=== PATIENT | male | born 1975 | race Hispanic/Latino ===

== ENCOUNTER 2018-08-16 11:28 | Emergency (ER) | payer SELFPAY ==
[2018-08-16] MEDS ORDERED: KETOROLAC 30 MG/ML INJ ONE (12:33)
[2018-08-16] MEDS ORDERED: TETANUS & DIPHTHERIA TOX,ADULT 0.5 ML VIAL ONE (12:33)
--- NOTE | 2018-08-16 14:03 | RAD REPORT ---
EXAM DESCRIPTION: RAD - Knee Right 3 View - 08/16/2018 1:41 pm CLINICAL HISTORY: Leg pain, laceration superior to the patella COMPARISON: None. FINDINGS: No fracture, dislocation or periosteal reaction.No joint effusion seen. No joint space shala rowing. Soft tissue edema or bruising changes are present superior to the patella. No plain film find ings to indicate extension into a joint capsule. No air or foreign body in the soft tissues. IMPRESSION: No acute bone or joint finding. Soft tissue injury superior to the patella. No findings to suspect intra-articular extension.
--- NOTE | 2018-08-16 14:10 | ER ---
Nurse's Notes [facility] Name: Dmitri Craft Age: 43 yrs Sex: Male : 1975 Arrival Date: 08/16/2018 Time: 11:30 Bed 30 Private MD: Diagnosis: Right knee pain;Right knee abrasion Presentation: 08/16 11:41 Presenting complaint: Patient states: "I tripped and fell and cut my right knee". Pt aa5 reports laceration to right knee, dressing noted. Pt reports injury occurred Thursday08/14/18. Transition of care: patient was not received from another setting of care. Risk Assessment: Do you want to hurt yourself or someone else? Patient reports no desire to harm self or others. Initial Sepsis Screen: Does the patient meet any 2 criteria? No. Patient's initial sepsis screen is negative. Does the patient have a suspected source of infection? No. Patient's initial sepsis screen is negative. Care prior to arrival: None. 11:41 Method Of Arrival: Ambulatory aa5 11:41 Acuity: MIESHA 4 aa5 Historical: - Allergies: 11:42 No Known Allergies; aa5 - PMHx: 11:42 None; aa5 - PSHx: 11:42 None; aa5 - Immunization history:: Last tetanus immunization: unknown. - Social history:: Smoking status: Patient/guardian denies using tobacco. - Ebola Screening: : No symptoms or risks identified at this time. Screenin:16 Abuse screen: Denies threats or abuse. Denies injuries from another. Nutritional ch screening: No deficits noted. Tuberculosis screening: No symptoms or risk factors identified. Fall Risk Fall in past 12 months (25 points). No secondary diagnosis (0 pts). No IV (0 pts). Ambulatory Aid- None/Bed Rest/Nurse Assist (0 pts). Gait- Normal/Bed Rest/Wheelchair (0 pts) Mental Status- Oriented to own ability (0 pts). Total Pagan Fall Scale indicates Low Risk Score (25-44 pts). Fall prevention measures have been instituted. Side Rails Up X 2 Family Present and informed to notify staff if they need to leave bedside As available Patient and Family Educated on Fall Prevention Program and strategies. Assessment: 13:15 Reassessment: Patient appears in no apparent distress at this time. Patient and/or ch family updated on plan of care and expected duration. Pain level reassessed. Patient is alert, oriented x 3, equal unlabored respirations, skin warm/dry/pink. Pain: Complains of pain in right knee Pain currently is 7 out of 10 on a pain scale. Neuro: No deficits noted. Musculoskeletal: Capillary refill < 3 seconds, in bilateral fingers. toes. Range of motion: intact in all extremities. Injury Description: Laceration sustained to right knee is jagged, 2.6 to 7.5 cm long, not bleeding, was sustained 2 days ago. is bleeding no active bleeding noted. 14:14 Reassessment: Patient appears in no apparent distress at this time. No changes from previously documented assessment. Patient and/or family updated on plan of care and expected duration. Pain level reassessed. Patient is alert, oriented x 3, equal unlabored respirations, skin warm/dry/pink. 14:37 Reassessment: Patient appears in no apparent distress at this time. Patient and/or ch family updated on plan of care and expected duration. Pain level reassessed. Patient is alert, oriented x 3, equal unlabored respirations, skin warm/dry/pink. PT STATES HE WANTS TO SPEAK WITH THE PHYSICIAN ABOUT HIS FOOT. DISCHARGE DELAYED DUE TO PT REQUEST. DR JENNINGS NOTIFIED, AWAITING REASSESSMENT OF PT BY PHYSICIAN. Vital Signs: 11:43 BP 141 / 83; Pulse 83; Resp 16 S; Temp 98.5(TE); Pulse Ox 97% on R/A; Weight 84.82 kg aa5 (R); Height 5 ft. 10 in. (177.80 cm) (R); Pain 5/10; 13:00 BP 118 / 88; Pulse 71; Resp 16; Temp 98.8; Pulse Ox 99% on R/A; Pain 6/10; ch 14:37 BP 121 / 78; Pulse 70; Resp 14; Temp 98.7; Pulse Ox 99% on R/A; Pain 2/10; ch 11:43 Body Mass Index 26.83 (84.82 kg, 177.80 cm) aa5 ED Course: 11:30 Patient arrived in ED. as 11:41 Arm band placed on. aa5 11:42 Triage completed. aa5 11:50 Daniel Jennings MD is Attending Physician. [facility] 12:11 Sarita Holbrook, RN is Primary Nurse. ch 13:16 No apparent distress. Resting quietly. ch 13:16 Patient has correct armband on for positive identification. Bed in low position. Call light in reach. Side rails up X 1. Adult w/ patient. Warm blanket given. 13:16 No provider procedures requiring assistance completed. Patient did not have IV access ch during this emergency room visit. Wound care: to laceration located on right knee was cleaned with Hibiclens, dressed with Neosporin, 4X4s, Kerlix, Patient tolerated well. 13:36 X-ray completed. Portable x-ray completed in exam room. Patient tolerated procedure jb2 well. 13:41 Knee Right 3 View XRAY In Process Unspecified. EDMS Administered Medications: 12:27 Drug: Tetanus-Diphtheria Toxoid Adult 0.5 ml {Strategy Analyst: [employer]. Exp: 07/08/2020. Lot #: [id number]. } Route: IM; Site: right deltoid; 14:43 Follow up: Response: No adverse reaction 12:28 Drug: TORadol 30 mg Route: IM; Site: left deltoid; 14:43 Follow up: Response: No adverse reaction Outcome: 14:10 Discharge ordered by MD. ps1 14:40 Discharged to home ambulatory, with family. ch 14:40 Condition: stable 14:40 Discharge instructions given to patient, family, Instructed on discharge instructions, follow up and referral plans. medication usage, Demonstrated understanding of instructions, follow-up care, medications, Prescriptions given X 3. 14:40 Patient left the ED. Signatures: Dispatcher [employer] EDIN Sarita Holbrook, Ty Palomino RN, ch jb2 Stephanie Keith Audri, RN RN aa5 Daniel Jennings MD MD ps1 Corrections: (The following items were deleted from the chart) 13:16 13:15 Injury Description: Laceration sustained to right knee is jagged, 2.6 to 7.5 cm ch long, not bleeding, was sustained 4-6 hours ago. is bleeding no active bleeding noted. ch 14:40 13:00 Discharged to home ambulatory, with family, [facility] 14:40 13:00 Condition: stable [facility] 14:40 13:00 Discharge instructions given to patient, family, Instructed on discharge instructions, follow up and referral plans. medication usage, Demonstrated understanding of instructions, follow-up care, medications, Prescriptions given X 3, ch
--- NOTE | 2018-08-16 14:10 | EDPHYS ---
Physician Documentation [facility] Name: Dmitri Craft Age: 43 yrs Sex: Male : 1975 Arrival Date: 08/16/2018 Time: 11:30 Bed 30 Private MD: ED Physician Daniel Jennings HPI: 08/16 12:05 This 43 yrs old Male presents to ER via Ambulatory with complaints of ps1 Laceration - Knee. 12:05 patient was running with grandson and fell. He hit his right knee and has a deep ps1 abrasion and maceration of the tissue over the right knee. Mild pain to palpation of the patella. Pain rated as moderate. Ambulatory. No remitting factors. Did not hit head. No LOC. . Historical: - Allergies: 11:42 No Known Allergies; aa5 - PMHx: 11:42 None; aa5 - PSHx: 11:42 None; aa5 - Immunization history:: Last tetanus immunization: unknown. - Social history:: Smoking status: Patient/guardian denies using tobacco. - Ebola Screening: : No symptoms or risks identified at this time. ROS: 12:05 Constitutional: Negative for fever, chills, and weight loss, Eyes: Negative for injury, ps1 pain, redness, and discharge, Cardiovascular: Negative for chest pain, palpitations, and edema, Respiratory: Negative for shortness of breath, cough, wheezing, and pleuritic chest pain, Abdomen/GI: Negative for abdominal pain, nausea, vomiting, diarrhea, and constipation, Back: Negative for injury and pain, Neuro: Negative for headache, weakness, numbness, tingling, and seizure. 12:05 MS/extremity: Positive for injury or acute deformity, abrasion, tenderness, of the right knee. 12:05 Skin: Positive for abrasion(s), of the right knee. Exam: 12:05 Constitutional: This is a well developed, well nourished patient who is awake, alert, ps1 and in no acute distress. Head/Face: Normocephalic, atraumatic. Eyes: Pupils equal round and reactive to light, extra-ocular motions intact. Lids and lashes normal. Conjunctiva and sclera are non-icteric and not injected. Chest/axilla: Normal chest wall appearance and motion. Nontender with no deformity. No lesions are appreciated. Cardiovascular: Regular rate and rhythm. No gallops, murmurs, or rubs. Normal PMI, no JVD. No pulse deficits. Respiratory: Lungs have equal breath sounds bilaterally, clear to auscultation and percussion. No rales, rhonchi or wheezes noted. No increased work of breathing, no retractions or nasal flaring. Abdomen/GI: Soft, non-tender, with normal bowel sounds. No distension or tympany. No guarding or rebound. No evidence of tenderness throughout. Skin: Warm, dry with normal turgor. Normal color with no rashes, no lesions, and no evidence of cellulitis. Neuro: Awake and alert, GCS 15, oriented to person, place, time, and situation. Cranial nerves II-XII grossly intact. Sensory grossly intact. Psych: Awake, alert, with orientation to person, place and time. Behavior, mood, and affect are within normal limits. 12:05 Musculoskeletal/extremity: Extremities: grossly normal except: noted in the right knee: laceration, mild patellar pain. Abrasion and macerated skin over the patella appx 4 cm in circumference. Does not appear to be able to be sutured. . Vital Signs: 11:43 BP 141 / 83; Pulse 83; Resp 16 S; Temp 98.5(TE); Pulse Ox 97% on R/A; Weight 84.82 kg aa5 (R); Height 5 ft. 10 in. (177.80 cm) (R); Pain 5/10; 13:00 BP 118 / 88; Pulse 71; Resp 16; Temp 98.8; Pulse Ox 99% on R/A; Pain 6/10; ch 14:37 BP 121 / 78; Pulse 70; Resp 14; Temp 98.7; Pulse Ox 99% on R/A; Pain 2/10; ch 11:43 Body Mass Index 26.83 (84.82 kg, 177.80 cm) aa5 MDM: 12:09 Patient medically screened. ps1 08/16 12:04 Order name: Knee Right 3 View XRAY; Complete Time: 14:06 ps1 Administered Medications: 12:27 Drug: Tetanus-Diphtheria Toxoid Adult 0.5 ml {Clay Miller: [employer]. Exp: 07/08/2020. Lot #: [id number]. } Route: IM; Site: right deltoid; 14:43 Follow up: Response: No adverse reaction 12:28 Drug: TORadol 30 mg Route: IM; Site: left deltoid; 14:43 Follow up: Response: No adverse reaction Disposition: 08/16/18 14:10 Discharged to Home. Impression: Right knee pain, Right knee abrasion. - Condition is Stable. - Discharge Instructions: Abrasion. - Prescriptions for Anaprox DS 550 mg Oral Tablet - take 1 tablet by ORAL route every 12 hours As needed; 20 tablet. Robaxin 500 mg Oral Tablet - take 2 tablet by ORAL route every 6 hours As needed; 40 tablet. Medrol (Maximilian) 4 mg Oral Tablets, Dose Pack - take 1 tablet by ORAL route as directed - follow package instructions; 1 packet. - Medication Reconciliation Form, Thank You Letter, Antibiotic Education, Prescription Opioid Use form. - Work release form (08/16/18 14:41). ch - Follow up: Private Physician; When: 1 week; Reason: Re-evaluation by your physician. - Problem is new. - Symptoms have improved. Signatures: Dispatcher [employer] EDSarita Peter, RN RN Liliya Wu RN RN aa5 Daniel Jennings MD MD ps1 Corrections: (The following items were deleted from the chart) 14:40 14:10 08/16/2018 14:10 Discharged to Home. Impression: Right knee pain; Right knee ch abrasion. Condition is Stable. Forms are Medication Reconciliation Form, Thank You Letter, Antibiotic Education, Prescription Opioid Use. Follow up: Private Physician; When: 1 week; Reason: Re-evaluation by your physician. Problem is new. Symptoms have improved. ps1
== END 2018-08-16 14:40 | disposition home or self-care (01) ==
LOC: ER 11:28
DX: M25.561 Pain in right knee (principal); S80.211A Abrasion, right knee, initial encounter; W01.0XXA Fall on same level from slipping, tripping and stumbling without subsequent striking against object, initial encounter; Y93.9 Activity, unspecified; Y92.9 Unspecified place or not applicable
CPT/HCPCS: 90714; 96372; 99284

== ENCOUNTER 2019-03-10 00:15 | Inpatient (IN) | payer SELFPAY ==
[2019-03-10] MEDS ORDERED: Ringers Lactate 1,000 ML IV ONE (01:09)
[2019-03-10 01:16] VITALS: BMI 26.7
[2019-03-10] MEDS: Ringers Lactate 1,000 ML IV SCH ×3 (01:40→19:00)
[2019-03-10] MEDS ORDERED: ONDANSETRON 4 MG/2 ML VIAL IV PRN (02:17)
[2019-03-10] MEDS: HYDROMORPHONE HCL 1 MG/ML INJ IV PRN ×3 (03:11→20:37)
[2019-03-10 04:31] LABS: ALT/SGPT 54 U/L (12-78); AST/SGOT 19 U/L (15-37); Albumin 3.5 g/dL (3.4-5.0); Alkaline Phosphatase 60 U/L (45-117); BUN Blood Urea Nitrogen 9 mg/dL (7-18); Bicarbonate 27 mmol/L (21-32); Bilirubin Direct 0.4 mg/dL (0-0.2); Bilirubin Total 1.5 mg/dL (0.2-1.0); Glucose Level 118 mg/dL (74-106); Magnesium 2.2 mg/dL (1.8-2.4); Potassium 3.9 mmol/L (3.5-5.1); Protein, Total 6.6 g/dL (6.4-8.2); Sodium Level 138 mmol/L (136-145)
[2019-03-10 04:35] LABS: Absolute Lymphocytes (CBC) 0.9 K/uL (0.7-4.9); Basophils % 0.2 % (0-1.3); Lymphocytes % 8.4 % (15.3-44.8); MPV 8.6 fL (7.6-11.3); RBC Red Blood Cell Count 4.75 M/uL (4.33-5.43)
[2019-03-10] MEDS ORDERED: PIPERACIL/TAZO 3.375 GM VIAL IV ONE (04:53)
[2019-03-10] MEDS ORDERED: NA CHLORIDE 0.9% 100 ML ONE (05:51)
[2019-03-10] MEDS ORDERED: PIPER/TAZO/NS 3.375gm 3.375 GM/100 ML BAG IVPB SCH (06:00)
--- NOTE | 2019-03-10 14:13 | HP ---
Date of Admission: 03/10/2019 Chief Complaint: Abdominal pain. History Of Present Illness: The patient is a 43-year-old gentleman, who comes in with a 2-day histor y of lower abdominal pain mostly in the suprapubic and left lower quadrant. He denies any nausea and vomiting, occasional alternating diarrhea and constipation. No blood in his stool. No dysuria, hem aturia. No weight loss. Never had a colonoscopy and no family history of colorectal malignancy. No sore throat, runny nose, cough, headaches, or dizziness. No chest pain. He did have subjective fev er at home. Review of Systems: Otherwise unremarkable. Past Medical History: Negative. Past Surgical History: Left arm surgery. Allergies: NO ALLERGIES. Social History: Denies smoking or drinking. Family History: Hypertension, diabetes. Review of Systems: Otherwise, unremarkable. Physical Examination: Vital Signs: Stable. Temperature currently is 99.0. General: He is awake, alert, and oriented x3. Head and Neck: Cranial nerves 2 through 12 are grossly within normal limits. No neck masses. No JV D. Throat clear. Neck is supple. Chest: Clear. Heart: S1 and S2. Abdomen: Soft, nondistended. Positive bowel sounds. Positive suprapubic and left lower quadrant te nderness. In the left lower quadrant, there is also some rebound but no rigidity or guarding. Patie nt has a small umbilical hernia. Extremities: Adequately perfused. Nontender. Neurologic: Nonfocal. Diagnostic Data: White count this morning was 10.2 with left shift. Chemistry reviewed. CT of the abdomen and pelvis shows acute sigmoid diverticulitis with microperforation contained. Assessment: Acute sigmoid diverticulitis with microperforation. Recommendations: Admit, n.p.o., IV fluid, IV antibiotic. Dietary consultation for dietary modificat ion. Once the symptoms improve, he will be discharged on oral antibiotics for 2 weeks and then we wi ll see him in followup and we will refer him to a colorectal surgeon for colonoscopy and eventual col on resection. Plan of care discussed in detail with the patient and family and they understand and a gree. /MODL Voice ID: [id number]
[2019-03-10] MEDS: PIPER/TAZO/NS 3.375gm 3.375 GM/100 ML BAG IVPB SCH (14:33)
[2019-03-10 15:05] LABS: Urine Appearance CLEAR; Urine Bilirubin NEGATIVE (NEG); Urine Blood NEGATIVE (NEG); Urine Color YELLOW; Urine Glucose NEGATIVE (NEG); Urine Protein NEGATIVE (NEG); Urine Specific Gravity <=1.005 (1.005-1.030)
[2019-03-10 15:06] LABS: Urine Microscopic Reflex NO UMIC
[2019-03-11] MEDS: PIPER/TAZO/NS 3.375gm 3.375 GM/100 ML BAG IVPB SCH ×3 (00:39→16:00)
[2019-03-11] MEDS: Ringers Lactate 1,000 ML IV SCH ×4 (00:40→17:48)
[2019-03-11] MEDS: HYDROMORPHONE HCL 1 MG/ML INJ IV PRN (04:28)
[2019-03-11 09:35] LABS: Absolute Lymphocytes (CBC) 1.2 K/uL (0.7-4.9); Basophils % 0.4 % (0-1.3); Hematocrit 44.3 % (39.6-49.0); MPV 8.3 fL (7.6-11.3); RBC Red Blood Cell Count 4.89 M/uL (4.33-5.43)
[2019-03-11 09:41] LABS: BUN Blood Urea Nitrogen 10 mg/dL (7-18); Bicarbonate 26 mmol/L (21-32); Glucose Level 153 mg/dL (74-106); Magnesium 2.1 mg/dL (1.8-2.4); Phosphorus 2.7 mg/dL (2.5-4.9); Potassium 3.7 mmol/L (3.5-5.1); Sodium Level 137 mmol/L (136-145)
--- NOTE | 2019-03-11 15:29 | PN ---
Date of Progress Note: 03/11/2019 Subjective: Patient is awake, alert. Pain is much better. He is tolerating his clear liquids. Objective: Vital Signs: Stable. Afebrile. Abdomen: Minimal tenderness in left lower quadrant. Laboratory Data: White count is normal. Assessment: Acute sigmoid diverticulitis with microperforation. Recommendations: We will advance diet. Continue IV antibiotics. Await dietitian recommendations. We will advance diet to low fiber as tolerated. Patient is clinically doing well. /MODL Voice ID: [id number] Report ID: [id number]
[2019-03-12] MEDS: PIPER/TAZO/NS 3.375gm 3.375 GM/100 ML BAG IVPB SCH ×2 (00:19→07:38)
[2019-03-12] MEDS: Ringers Lactate 1,000 ML IV SCH ×3 (02:36→11:00)
[2019-03-12 07:45] VITALS: O2SAT 96
[2019-03-12 12:08] VITALS: BP 127/80; TEMP 97.2
--- NOTE | 2019-03-12 22:53 | DS ---
Date of Discharge: 03/12/2019 Admitting Diagnosis: Acute sigmoid diverticulitis with microperforation. Discharge Diagnosis: Acute sigmoid diverticulitis with microperforation. Hospital Course: Patient is a 43-year-old gentleman who was admitted with that diagnosis, was treate d with IV antibiotics and serial abdominal exam. Laboratory data was followed. Dietitian consultati on was obtained. Liquids were started yesterday and advanced. He is tolerating the diet, ambulating , pain controlled with p.o. pain medication and physical exam does not show any evidence of peritonit is. Therefore, patient will be discharged to home. Disposition: Home. Condition: Stable. Discharge Instructions: Resume home medications and diet. Activity as tolerated. Cipro 500 mg p.o. q.12, Flagyl 500 mg p.o. q.6, Tylenol No. 3 one tablet p.o. q.4 p.r.n. pain. Follow up in my office in 1 to 2 weeks. Call for appointment. Patient will need a colonoscopy in 4 to 6 weeks and then a segmental colon resection. /MODL Voice ID: [id number] Report ID: [id number]
== END 2019-03-12 12:45 | disposition home or self-care (01) | DRG 392 ==
LOC: 4TH 00:15
PROVIDERS: ADMIT Surgery; ATTEND Surgery
DX: K57.20 Diverticulitis of large intestine with perforation and abscess without bleeding (principal)
CPT/HCPCS: 36415; 80048; 80076; 81003; 83735; 84100; 85025; J1170; J2543; J7120